=== PATIENT | female | born 1940 | race Caucasian/White ===

== ENCOUNTER 2017-05-13 14:01 | Day surgery (SDC) | payer MEDICARE ==
[~2017-05-13] VITALS: Ht 162.6 cm; Wt 63.5 kg
[~2017-05-13 14:01] MED LIST: ALEN70; AMLO10 PO; AMLO5; ASPI81CH; ASPI81EC PO; CALCIUM; DAILY VIT; DOCU100 PO; ESOM20; FISH1000 PO; HYDACE5 PO; HYDCHL12.5 PO; LAVAP17G PO; LEVO750 PO; LEVSOD50 PO; MAGCIT300 PO; METO25ER PO; MULVITMIND PO; Micro-K10 MEQ PO; OMEP20ER PO; OYSTER SHELL PO; POTCHL20ER PO; Prilosec Otc20 MG PO; QUIN10; QUIN10 PO; RALO60 PO; TOLT4; TOLT4 PO; VIT B; VITAMIN D PO
[2017-05-13] MEDS ORDERED: LOSA50 PO (15:15)
[2017-12-24] MEDS ORDERED: AMLO10 PO (13:48)
[2017-12-24] MEDS ORDERED: HYDCHL12.5 PO (13:49)
[2017-12-24] MEDS ORDERED: Aspirin EC81 MG (13:49)
[2017-12-24] MEDS ORDERED: RALO60 PO (13:49)
[2017-12-24] MEDS ORDERED: Omeprazole20 M1 (13:50)
[2017-12-24] MEDS ORDERED: LOSARTAN POTAS100 MG PO (13:50)
[2017-12-24] MEDS ORDERED: LEVO-T75 MCG PO (13:50)
[2017-12-24] MEDS ORDERED: Multiple Vitam1 EACH PO (13:51)
[2017-12-24] MEDS ORDERED: Calcium 250+D1 EACH PO (13:51)
[2017-12-24] MEDS ORDERED: FISH OIL 1,0001 EAC1 PO (13:51)
[2017-12-24] MEDS ORDERED: VITAMIN D31000 UNIT PO (13:52)
[2017-12-24] MEDS ORDERED: Fibercon625 MG PO (13:53)
[2017-12-24] MEDS ORDERED: Klor-Con 1010 MEQ PO (13:53)
[2017-12-24] MEDS ORDERED: Tylophen500 MG PO (13:53)
[2017-12-24] MEDS ORDERED: METO25ER PO (13:53)
== END 2017-05-13 17:15 | disposition home or self-care (01) ==
LOC: ORSCSDS 14:01
PROVIDERS: Podiatrist
PROC: 01NH0ZZ Release Peroneal Nerve, Open Approach (ICD-10-PCS; principal; 2017-05-13 15:15)
DX: G57.61 Lesion of plantar nerve, right lower limb (principal); I10 Essential (primary) hypertension; E03.9 Hypothyroidism, unspecified; E78.5 Hyperlipidemia, unspecified; Z87.891 Personal history of nicotine dependence; Z86.73 Personal history of transient ischemic attack (TIA), and cerebral infarction without residual deficits; Z79.899 Other long term (current) drug therapy
CPT/HCPCS: J0690; J1100; J2250; J3010; J7120

== ENCOUNTER → 2017-11-30 | Outpatient (CLI) | payer MEDICARE ==
[~2017-11-30] MED LIST changes: +LOSA50 PO
[2017-12-03 00:02] LABS: Stool Occult Bld Immuno 1 Negative (NEGATIVE); Stool Occult Bld Immuno 2 Negative (NEGATIVE)
== END | disposition home or self-care (01) ==
LOC: LAB EV 08:15
PROVIDERS: Internal Medicine Gastroenterology
DX: Z12.11 Encounter for screening for malignant neoplasm of colon (principal)
CPT/HCPCS: G0328

== ENCOUNTER 2018-01-03 09:58 | Day surgery (SDC) | payer MEDICARE ==
[~2018-01-03] VITALS: Ht 160 cm; Wt 65.2 kg
[~2018-01-03 09:58] MED LIST changes: +Aspirin EC81 MG; +Calcium 250+D1 EACH PO; +FISH OIL 1,0001 EAC1 PO; +Fibercon625 MG PO; +Klor-Con 1010 MEQ PO; +LEVO-T75 MCG PO; +LOSARTAN POTAS100 MG PO; +Multiple Vitam1 EACH PO; +Omeprazole20 M1; +Tylophen500 MG PO; +VITAMIN D31000 UNIT PO
== END 2018-01-03 11:33 | disposition home or self-care (01) ==
LOC: ORSCSDS 09:58
PROVIDERS: Internal Medicine Gastroenterology
PROC: 0DB68ZX Excision of Stomach, Via Natural or Artificial Opening Endoscopic, Diagnostic (ICD-10-PCS; principal; 2018-01-03 11:15)
PROC: 0DB58ZX Excision of Esophagus, Via Natural or Artificial Opening Endoscopic, Diagnostic (ICD-10-PCS; principal; 2018-01-03 11:15)
DX: K22.70 Barrett's esophagus without dysplasia (principal); K31.7 Polyp of stomach and duodenum; K21.9 Gastro-esophageal reflux disease without esophagitis; I10 Essential (primary) hypertension; Z79.82 Long term (current) use of aspirin; Z79.899 Other long term (current) drug therapy; Z87.891 Personal history of nicotine dependence
CPT/HCPCS: J7120

== ENCOUNTER → 2019-03-16 | Outpatient (CLI) | payer MEDICARE ==
[2019-03-16 13:51] LABS: Alanine Aminotransfer (ALT/SGP 27 U/L (12-78); Albumin, Blood 3.7 g/dL (3.4-5.0); Albumin/Globulin Ratio 1.2 (0.8-1.8); Alk Phos 52 U/L (50-136); Anion Gap 10 mmol/L (6-16); Aspartate Aminotrans (AST/SGOT 21 U/L (12-37); Bilirubin, Total 0.4 mg/dL (0.1-1.0); Blood Urea Nitrogen 20 mg/dL (8-24); Bun/Creatinine Ratio 28.8 (12.0-20.0); CO2, Blood 26 mmol/L (21-32); Calcium, Blood 8.6 mg/dL (8.5-10.1); Chloride, Blood 107 mmol/L (98-108); Globulin, Blood 3.1 g/dL (2.2-4.0); Glomerular Filtration Rate >60 (60-); Glucose, Blood 94 mg/dL (70-99); Potassium, Blood 3.3 mmol/L (3.5-5.5); Sodium, Blood 143 mmol/L (136-145); Total Protein, Blood 6.8 g/dL (6.4-8.2)
== END | disposition home or self-care (01) ==
LOC: LAB SHORT 11:45 → LAB 11:45
PROVIDERS: Internal Medicine Hematology & Oncology
DX: I10 Essential (primary) hypertension (principal)
CPT/HCPCS: 80053

== ENCOUNTER → 2020-02-28 | Outpatient (CLI) | payer MEDICARE ==
[2020-03-01 12:29] LABS: CORONAVIRUS (COVID19) CSH-NRL Negative (Negative)
== END | disposition home or self-care (01) ==
LOC: LAB SHORT 19:22 → LAB 19:22
PROVIDERS: Chiropractor
DX: B34.9 Viral infection, unspecified (principal); Z20.828 Contact with and (suspected) exposure to other viral communicable diseases
CPT/HCPCS: U0003

== ENCOUNTER → 2020-03-14 | Outpatient (CLI) | payer MEDICARE ==
[2020-03-14 20:04] LABS: Percent Saturation 41.2 % (15.0-50.0)
== END | disposition home or self-care (01) ==
LOC: LAB 18:09
PROVIDERS: Internal Medicine Hematology & Oncology
DX: D50.0 Iron deficiency anemia secondary to blood loss (chronic) (principal)
CPT/HCPCS: 82728; 83540; 83550

== ENCOUNTER → 2020-06-04 | Outpatient (CLI) | payer MEDICARE | END | disposition home or self-care (01) | LOC: LAB SHORT 10:10 → PLD 10:10 | DX: R30.9 Painful micturition, unspecified (principal) | CPT/HCPCS: 87086 ==

== ENCOUNTER → 2021-01-21 | Outpatient (CLI) | payer MEDICARE | LOC: LAB 10:02 → LAB SHORT 10:02 | DX: R30.0 Dysuria (principal); R30.9 Painful micturition, unspecified; Z88.6 Allergy status to analgesic agent; Z88.5 Allergy status to narcotic agent | CPT/HCPCS: 87086 ==

== ENCOUNTER → 2022-09-14 | Outpatient (CLI) | payer MEDICARE ==
[2022-09-14 16:04] LABS: Albumin, Blood 3.3 g/dL (3.4-5.0); Albumin/Globulin Ratio 0.9 (0.8-1.8); Bilirubin, Total 0.4 mg/dL (0.1-1.0); Bun/Creatinine Ratio 31.4 (12.0-20.0); Calcium, Blood 8.5 mg/dL (8.5-10.1); Creatinine, Blood 0.7 mg/dL (0.40-1.00); Globulin, Blood 3.5 g/dL (2.2-4.0); Phosphorus, Blood 2.5 mg/dL (2.5-4.9); Potassium, Blood 3.3 mmol/L (3.5-5.5); Thyroid Stimulating Hormone 1.21 uIU/mL (0.360-4.800); Thyroxine (T4) 12.1 ug/dL (4.8-13.9); Total Protein, Blood 6.8 g/dL (6.4-8.2)
== END | disposition home or self-care (01) ==
LOC: LAB SHORT 09:25 → LAB 09:25
PROVIDERS: Internal Medicine Hematology & Oncology
DX: E03.9 Hypothyroidism, unspecified (principal); C50.911 Malignant neoplasm of unspecified site of right female breast
CPT/HCPCS: 80053; 84100; 84436; 84443

== ENCOUNTER 2023-10-29 17:41 | Observation (INO) | payer MEDICARE ==
[~2023-10-29] VITALS: Ht 172.7 cm; Wt 137.0 kg
[2023-10-29 19:02] LABS: BASOPHILS ABSOLUTE AUTO 0.03 K/mm3 (0.00-0.23); BASOPHILS PERCENT AUTO 1 % (0-2); EOSINOPHILS ABSOLUTE AUTO 0.09 K/mm3 (0.00-0.68); EOSINOPHILS PERCENT AUTO 2 % (0-6); Hematocrit 39.1 % (33.0-51.0); IMMATURE GRAN ABSOLUTE AUTO 0.01 K/mm3 (0.00-0.10); IMMATURE GRAN PERCENT AUTO 0 % (0-1); LYMPHOCYTES ABSOLUTE AUTO 1.18 K/mm3 (0.84-5.20); LYMPHOCYTES PERCENT AUTO 27 % (21-46); MONOCYTES ABSOLUTE AUTO 0.31 K/mm3 (0.16-1.47); MONOCYTES PERCENT AUTO 7 % (4-13); Mean Corpuscular HGB 29.7 pg (26.0-34.0); Mean Corpuscular HGB Conc 33.2 g/dL (31.5-36.5); Mean Corpuscular Volume 89 fL (80-100); Mean Platelet Volume 9.9 fL (9.1-12.4); NEUTROPHILS ABSOLUTE AUTO 2.76 K/mm3 (1.96-9.15); NEUTROPHILS PERCENT AUTO 63 % (41-73); Platelet Count 180 K/mm3 (150-400); RDW Coefficient Variation 12.5 % (11.7-14.2); Red Blood Cell Count 4.38 M/mm3 (3.80-5.20); White Blood Cell Count 4.38 K/mm3 (4.00-11.30)
[2023-10-29 19:22] LABS: Albumin, Blood 3.5 g/dL (3.4-5.0); Albumin/Globulin Ratio 0.9 (0.8-1.8); Bilirubin, Total 0.2 mg/dL (0.1-1.0); Bun/Creatinine Ratio 27.7 (12.0-20.0); Calcium, Blood 8.4 mg/dL (8.5-10.1); Creatinine, Blood 0.87 mg/dL (0.40-1.00); Globulin, Blood 4.1 g/dL (2.2-4.0); Potassium, Blood 3.4 mmol/L (3.5-5.5); Total Protein, Blood 7.6 g/dL (6.4-8.2)
[2023-10-29] MEDS ORDERED: Aspirin 81 MG Chew PO ONE (21:40)
[2023-10-29] MEDS ORDERED: Clopidogrel Bisulfate 75 MG Tab PO ONE (21:55)
[2023-10-29] MEDS ORDERED: LOPE2C PO (21:59)
[2023-10-29] MEDS ORDERED: OLME20 PO (21:59)
[2023-10-29] MEDS ORDERED: Metoprolol Tartrate 1 MG/ML 5 ML VIAL IV ONE (22:00)
[2023-10-30 01:27] VITALS: BP 179/69
[2023-10-30] MEDS ORDERED: HYDCHL25 PO (01:48)
--- NOTE | 2023-10-30 04:34 | NUR ---
SHIFT SUMMARY PATIENT ABLE TO GET SOME SLEEP. REMAINS NPO FOR SWALLOW EVAL LATER TODAY.TELE SR 73.
[2023-10-30 05:09] LABS: BASOPHILS ABSOLUTE AUTO 0.03 K/mm3 (0.00-0.23); BASOPHILS PERCENT AUTO 1 % (0-2); EOSINOPHILS ABSOLUTE AUTO 0.06 K/mm3 (0.00-0.68); EOSINOPHILS PERCENT AUTO 1 % (0-6); Hematocrit 37.8 % (33.0-51.0); Hemoglobin 12.8 g/dL (11.5-16.0); IMMATURE GRAN ABSOLUTE AUTO 0.01 K/mm3 (0.00-0.10); IMMATURE GRAN PERCENT AUTO 0 % (0-1); LYMPHOCYTES ABSOLUTE AUTO 1.52 K/mm3 (0.84-5.20); LYMPHOCYTES PERCENT AUTO 33 % (21-46); MONOCYTES ABSOLUTE AUTO 0.44 K/mm3 (0.16-1.47); MONOCYTES PERCENT AUTO 10 % (4-13); Mean Corpuscular HGB 29.9 pg (26.0-34.0); Mean Corpuscular HGB Conc 33.9 g/dL (31.5-36.5); Mean Corpuscular Volume 88 fL (80-100); Mean Platelet Volume 9.8 fL (9.1-12.4); NEUTROPHILS ABSOLUTE AUTO 2.57 K/mm3 (1.96-9.15); NEUTROPHILS PERCENT AUTO 56 % (41-73); Platelet Count 184 K/mm3 (150-400); RDW Coefficient Variation 12.8 % (11.7-14.2); RDW Standard Deviation 41.1 fL (35.1-46.3); Red Blood Cell Count 4.28 M/mm3 (3.80-5.20); White Blood Cell Count 4.63 K/mm3 (4.00-11.30)
[2023-10-30 05:29] LABS: Alanine Aminotransfer (ALT/SGP 29 U/L (12-78); Albumin, Blood 3.5 g/dL (3.4-5.0); Albumin/Globulin Ratio 0.9 (0.8-1.8); Alk Phos 56 U/L (50-136); Anion Gap 9 mmol/L (3-11); Aspartate Aminotrans (AST/SGOT 20 U/L (12-37); Bilirubin, Total 0.4 mg/dL (0.1-1.0); Blood Urea Nitrogen 17 mg/dL (8-24); Bun/Creatinine Ratio 23.4 (12.0-20.0); CHOL/HDL RATIO 2.7; CO2, Blood 28 mmol/L (21-32); Calcium, Blood 8.4 mg/dL (8.5-10.1); Chloride, Blood 108 mmol/L (98-108); Cholesterol 186 mg/dL (50-200); Creatinine, Blood 0.73 mg/dL (0.40-1.00); Glomerular Filtration Rate 81 (60-); Glucose, Blood 105 mg/dL (70-99); HDL Cholesterol 68 mg/dL (>39); LDL/HDL RATIO 1.6; Low Density Lipoprotein Chol 109 mg/dL (0-110); Potassium, Blood 3.1 mmol/L (3.5-5.5); Sodium, Blood 142 mmol/L (136-145); Total Protein, Blood 7.5 g/dL (6.4-8.2); Triglycerides 47 mg/dL (30-160); Very Low Density Lipoprot Chol 9 mg/dL (6-32)
[2023-10-30] MEDS ORDERED: Potassium Chloride 10 Meq Tablet SA PO ONE (07:10)
[2023-10-30] MEDS ORDERED: Labetalol HCL 5 MG/ML 4ML Injection (Single Dose) IV PRN (07:10)
[2023-10-30] MEDS ORDERED: Levothyroxine Sodium 0.075 MG Tab PO SCH (07:15)
[2023-10-30 07:48] VITALS: BP 204/68
[2023-10-30] MEDS ORDERED: Clopidogrel Bisulfate 75 MG Tab PO SCH (09:00)
[2023-10-30] MEDS ORDERED: Atorvastatin 40 MG Tab PO SCH (09:00)
[2023-10-30] MEDS ORDERED: Aspirin 81 MG Chew PO SCH (09:00)
[2023-10-30] MEDS ORDERED: Enoxaparin 40 MG/0.4 ML SYR SC SCH (09:00)
--- NOTE | 2023-10-30 14:33 | NUR ---
DOWNTIME PAPER CHARTING DONE FOR ASSESSMENT DUE TO NOT BEING ABLE TO ACCESS INTERVENTIONS IN [employer].
[2023-10-30 16:43] VITALS: BP 173/60
--- NOTE | 2023-10-30 17:25 | NUR ---
SHIFT SUMMARY PT ADMITTED FOR OBSERVATION FOR POSSIBLE STROKE. PT'S ONLY SYMPTOM HAS BEEN SLURRED SPEECH AND SPEECH SEEMS TO BE IMPROVING THIS SHIFT. NO OTHER DEFICITS NOTED AT THIS TIME. SWALLOW EVAL DONE AND PT PASSED. SHE IS TOLERATING A REGULAR DIET. MRI OF THE HEAD COMPLETED THIS SHIFT. PUREWICK IN PLACE AT PT'S REQUEST DUE TO URGENCY. LABETOLOL GIVEN PRN X1 THIS SHIFT WITH GOOD EFFECT.
[2023-10-30 19:27] VITALS: BP 175/63
--- NOTE | 2023-10-31 04:53 | NUR ---
SHIFT SUMMARY *YISEL* WAS ALERT AND FULLY ORIENTED AND WELL SEEMING ON ASSESSMENT. PT DENIES ANY SYMPTOMS. B/P IS STILL HIGH, SYSTOLIC IN 170'S. PT RESTING IN BED, NO CHANGES TO CONDITION TONIGHT, NO EVENTS
[2023-10-31 07:58] VITALS: BP 193/66
[2023-10-31] MEDS ORDERED: AmLODIPine Besylate 5 MG Tab PO SCH (12:20)
[2023-10-31] MEDS ORDERED: Losartan Potassium 50 MG Tab PO SCH (12:20)
[2023-10-31] MEDS ORDERED: Metoprolol Tartrate 50 MG Tab PO SCH (12:20)
[2023-10-31] MEDS ORDERED: Potassium Chloride 10 Meq Tablet SA PO SCH (12:20)
[2023-10-31 12:38] LABS: BASOPHILS ABSOLUTE AUTO 0.03 K/mm3 (0.00-0.23); BASOPHILS PERCENT AUTO 1 % (0-2); EOSINOPHILS ABSOLUTE AUTO 0.05 K/mm3 (0.00-0.68); EOSINOPHILS PERCENT AUTO 1 % (0-6); Hematocrit 39.9 % (33.0-51.0); Hemoglobin 13.3 g/dL (11.5-16.0); IMMATURE GRAN ABSOLUTE AUTO 0.01 K/mm3 (0.00-0.10); IMMATURE GRAN PERCENT AUTO 0 % (0-1); LYMPHOCYTES ABSOLUTE AUTO 1.56 K/mm3 (0.84-5.20); LYMPHOCYTES PERCENT AUTO 27 % (21-46); MONOCYTES ABSOLUTE AUTO 0.57 K/mm3 (0.16-1.47); MONOCYTES PERCENT AUTO 10 % (4-13); Mean Corpuscular HGB 29.7 pg (26.0-34.0); Mean Corpuscular HGB Conc 33.3 g/dL (31.5-36.5); Mean Corpuscular Volume 89 fL (80-100); Mean Platelet Volume 9.7 fL (9.1-12.4); NEUTROPHILS ABSOLUTE AUTO 3.47 K/mm3 (1.96-9.15); NEUTROPHILS PERCENT AUTO 61 % (41-73); Platelet Count 189 K/mm3 (150-400); RDW Standard Deviation 42.7 fL (35.1-46.3); Red Blood Cell Count 4.48 M/mm3 (3.80-5.20); White Blood Cell Count 5.69 K/mm3 (4.00-11.30)
[2023-10-31 12:53] LABS: Bun/Creatinine Ratio 26.4 (12.0-20.0); Calcium, Blood 8.7 mg/dL (8.5-10.1); Creatinine, Blood 0.87 mg/dL (0.40-1.00); Potassium, Blood 4.1 mmol/L (3.5-5.5)
[2023-10-31] MEDS ORDERED: ASPI81CH PO (12:56)
[2023-10-31 12:57] VITALS: BP 167/63
[2023-10-31] MEDS ORDERED: ATOR80 PO (12:57)
[2023-10-31] MEDS ORDERED: CLOP75 PO (12:57)
--- NOTE | 2023-10-31 14:22 | NUR ---
DISCHARGE SUMMARY PT A&Ox4, CALLS AND COMMUNICATES NEEDS APPROPRIATELY. BP ELEVATED, MANAGED WITH HOME REGIMEN, SINUS 70-100, DENIES CP/PRESSURE. SpO2> 92% RA, DENIES SOB. IND IN ROOM. CONTINENT OF URINE ADN BOWEL. NO DEFICITS FROM CVA. FAMILY AT BEDSIDE WHILE YANA ANDERSON GAVE DISCHARGE INSTRUCTIONS. ALL PT BELONGINGS GATHERED ADN PT TAKEN OUT VIA WHEELCHAIR AT APPROXIMATELY 1410.
--- NOTE | 2023-10-31 14:34 | NUR ---
1400 DISCHARGE INSTRUCTIONS REVIEWED WITH PATIENT AND PATIENTS DAUGHTER. BOTH VERBALIZE UNDERSTANDING OF INSTRUCTIONS. PT STATES IS URINATING AND CHAP[employer] PO FOOD AND FLUIDS WTHOUT DIFFICULTY. PRESCRIPTIONS FAXED TO [employer] PER REQUEST. PT INSTRUCTED TO CALL TO SCHEDULE FOLLOW UP APPT WITH PCP. DISCHARGE TO HOME AT 1415
== END 2023-10-31 14:08 | disposition home or self-care (01) ==
LOC: ER 17:41 → MEDS 17:42 → ER 10-30 00:41 → MEDS 10-30 00:55
PROVIDERS: Internal Medicine; Student in an Organized Health Care Education/Training Program; ADMIT Internal Medicine
DX: I63.81 Other cerebral infarction due to occlusion or stenosis of small artery (principal); R47.81 Slurred speech; I10 Essential (primary) hypertension; E78.5 Hyperlipidemia, unspecified; Z87.891 Personal history of nicotine dependence; Z88.5 Allergy status to narcotic agent; Z88.6 Allergy status to analgesic agent; Z79.82 Long term (current) use of aspirin; Z79.899 Other long term (current) drug therapy
CPT/HCPCS: 36415; 70450; 70496; 70498; 70551; 80048; 80053; 80061; 83036; 83880; 85025; 92610; 93005; 93010; 93306; 96372; 96374; 99285-25; A9270; G0378; J1650; Q9967

== ENCOUNTER 2023-10-31 22:31 | Emergency (ER) | payer MEDICARE ==
[~2023-10-31] VITALS: Ht 160 cm; Wt 63.5 kg
[~2023-10-31 22:31] MED LIST changes: +ASPI81CH PO; +ATOR80 PO; +CLOP75 PO; +HYDCHL25 PO; +LOPE2C PO; +OLME20 PO
[2023-10-31 22:58] LABS: BASOPHILS ABSOLUTE AUTO 0.03 K/mm3 (0.00-0.23); BASOPHILS PERCENT AUTO 1 % (0-2); EOSINOPHILS ABSOLUTE AUTO 0.11 K/mm3 (0.00-0.68); EOSINOPHILS PERCENT AUTO 2 % (0-6); Hematocrit 39.5 % (33.0-51.0); Hemoglobin 13.2 g/dL (11.5-16.0); IMMATURE GRAN ABSOLUTE AUTO 0.01 K/mm3 (0.00-0.10); IMMATURE GRAN PERCENT AUTO 0 % (0-1); LYMPHOCYTES ABSOLUTE AUTO 2.69 K/mm3 (0.84-5.20); LYMPHOCYTES PERCENT AUTO 42 % (21-46); MONOCYTES ABSOLUTE AUTO 0.54 K/mm3 (0.16-1.47); MONOCYTES PERCENT AUTO 9 % (4-13); Mean Corpuscular HGB 29.7 pg (26.0-34.0); Mean Corpuscular HGB Conc 33.4 g/dL (31.5-36.5); Mean Corpuscular Volume 89 fL (80-100); Mean Platelet Volume 9.8 fL (9.1-12.4); NEUTROPHILS ABSOLUTE AUTO 2.98 K/mm3 (1.96-9.15); NEUTROPHILS PERCENT AUTO 47 % (41-73); Platelet Count 190 K/mm3 (150-400); RDW Coefficient Variation 13.1 % (11.7-14.2); RDW Standard Deviation 42.6 fL (35.1-46.3); Red Blood Cell Count 4.45 M/mm3 (3.80-5.20); White Blood Cell Count 6.36 K/mm3 (4.00-11.30)
[2023-10-31 23:16] LABS: Albumin, Blood 3.8 g/dL (3.4-5.0); Bilirubin, Total 0.4 mg/dL (0.1-1.0); Bun/Creatinine Ratio 32.7 (12.0-20.0); Calcium, Blood 9.5 mg/dL (8.5-10.1); Creatinine, Blood 1.04 mg/dL (0.40-1.00); Magnesium, Blood 2.2 mg/dL (1.6-2.4); Total Protein, Blood 7.8 g/dL (6.4-8.2)
[2023-10-31] MEDS ORDERED: Labetalol HCL 5 MG/ML 20MLVIAL IV ONE (23:20)
[2023-10-31] MEDS ORDERED: Metoprolol Succinate 50 MG TABCR PO ONE (23:20)
[2023-10-31] MEDS ORDERED: Labetalol HCL 5 MG/ML 4ML Injection (Single Dose) IV ONE (23:35)
[2023-11-01 00:35] VITALS: BP 172/69
== END 2023-11-01 00:38 | disposition home or self-care (01) ==
LOC: ER 22:31
PROVIDERS: Physician Assistant
DX: G45.9 Transient cerebral ischemic attack, unspecified (principal); I10 Essential (primary) hypertension; Z88.6 Allergy status to analgesic agent; Z88.5 Allergy status to narcotic agent; Z79.899 Other long term (current) drug therapy; Z79.02 Long term (current) use of antithrombotics/antiplatelets; Z79.82 Long term (current) use of aspirin
CPT/HCPCS: 70450; 80053; 82947; 83735; 85025; 93005; 93010; 99284-25; A9270